=== PATIENT | female | born 1950 | race Caucasian/White ===

== ENCOUNTER 2017-07-26 19:10 | Emergency (ER) | payer OTHER ==
[~2017-07-26] VITALS: Ht 152.4 cm; Wt 92.4 kg
[~2017-07-26 19:10] MED LIST: AMLH550 PO; ASPCH81 PO; ATEN50TA8 PO; ATOR10TA88 PO; SYN50 PO
[2017-07-26 19:18] VITALS: TEMP 36.6; Ht 152.4 cm; Wt 92.4 kg
[2017-07-26] MEDS ORDERED: KRIL1000 PO (20:00)
[2017-07-26] MEDS ORDERED: GLUCTAB7 PO (20:00)
[2017-07-26] MEDS ORDERED: LEVO100T PO (20:00)
[2017-07-26] MEDS ORDERED: ASPCH81X PO (20:00)
[2017-07-26] MEDS ORDERED: CALCTAB7 PO (20:00)
[2017-07-26] MEDS ORDERED: COEN100C11 PO (20:00)
[2017-07-26] MEDS ORDERED: GLC/500 PO (20:00)
[2017-07-26] MEDS ORDERED: METO25TA3 PO (20:00)
[2017-07-26] MEDS ORDERED: HYDR50TA3 PO (20:00)
[2017-07-26] MEDS ORDERED: ATOR10TA88 PO (20:00)
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
--- NOTE | 2017-07-26 20:28 | EMERGENCY ROOM VISIT NOTE ---
ED Visit Note First contact with patient: 19:55 I did evaluate and examine this patient myself. I did guide management for the patient. I agree with the APC's assessment as discussed. Please see the APC's dictation for further details. I did independently review the x-rays. The patient does have a fracture to the base of the fifth metatarsal. She will follow up with orthopedics.
[2017-07-26 20:33] VITALS: BP 163/87; PULSE 80; O2SAT 94
== END 2017-07-26 20:33 | disposition home or self-care (01) ==
LOC: C.EDB 19:12 → C.EDD 20:33
DX: S92.354A Nondisplaced fracture of fifth metatarsal bone, right foot, initial encounter for closed fracture (principal); V48.4XXA Person boarding or alighting a car injured in noncollision transport accident, initial encounter; Y92.9 Unspecified place or not applicable; E78.5 Hyperlipidemia, unspecified; I10 Essential (primary) hypertension; E03.9 Hypothyroidism, unspecified; Z79.82 Long term (current) use of aspirin; Z79.899 Other long term (current) drug therapy

== ENCOUNTER → 2017-08-07 | Outpatient (CLI) | payer OTHER ==
[~2017-08-07] MED LIST changes: -AMLH550 PO; -ASPCH81 PO; +ASPCH81X PO; -ATEN50TA8 PO; +CALCTAB7 PO; +COEN100C11 PO; +GLC/500 PO; +GLUCTAB7 PO; +HYDR50TA3 PO; +KRIL1000 PO; +LEVO100T PO; +METO25TA3 PO; -SYN50 PO
--- NOTE | 2017-08-07 10:53 | DIAGNOSTIC IMAGING REPORT ---
R FOOT MIN 3 VIEWS CLINICAL HISTORY: Right foot fracture COMPARISON: 07/26/2017 DISCUSSION: Again evident is an avulsion fracture arising from the anterior lateral aspect of the calcaneus. There is also a transverse fracture through the base of the fifth metatarsal. The fracture remains unchanged in alignment. IMPRESSION: 1. No change in the alignment of the essentially nondisplaced transverse fracture through the base of the fifth metatarsal 2. Stable avulsion fragments arising from the anterior lateral aspect of the calcaneus Electronically signed by: Douglas Troncoso M.D. 08/07/2017 10:52 AM Dictated Date/Time: 08/07/2017 10:51 AM
== END | disposition home or self-care (01) ==
LOC: C.RDSM 13:38
PROVIDERS: ATTEND Internal Medicine
DX: S92.901A Unspecified fracture of right foot, initial encounter for closed fracture (principal); X58.XXXA Exposure to other specified factors, initial encounter

== ENCOUNTER 2017-08-13 08:21 | Emergency (ER) | payer OTHER ==
[~2017-08-13] VITALS: Ht 152.4 cm; Wt 96.3 kg
[2017-08-13 08:29] VITALS: TEMP 36.7; Ht 152.4 cm; Wt 96.3 kg
[2017-08-13] MEDS ORDERED: KETOROLAC TROMETHAMINE 60 MG/2 ML VIAL IM STA (09:16)
[2017-08-13] MEDS ORDERED: METOPROLOL TARTRATE 25 MG TAB PO ONE (09:30)
[2017-08-13 10:23] VITALS: BP 168/82; PULSE 76; O2SAT 97
[2017-08-13] MEDS ORDERED: CYCL10TA6 PO (10:28)
[2017-08-13] MEDS ORDERED: HYDR-5688 PO (10:28)
--- NOTE | 2017-08-13 19:01 | EMERGENCY ROOM VISIT NOTE ---
History First contact with patient: 08:46 Chief Complaint: NECK PAIN Stated Complaint: STIFF NECK-UNABLE TO MOVE History of Present Illness The patient is a 67 year old white female who presents with her sister to the Emergency Room with complaints of left-sided neck pain. She is being seen by physical therapy for back pain. She states earlier in the week she was doing some crunches type exercises with the therapist. She felt a significant pull in her left neck and had immediate onset of pain. Pain has persisted and has become worse. She points to her trapezius as the area of discomfort. It is extending to the base of her skull on the left. No symptoms on the right. She is having difficulty moving her neck secondary to pain. She has been using meloxicam without improvement. She does care for her daughter who is recovering from a stroke. She also works. She did work this morning. She states she did not take her usual medications, including metoprolol. She is noted to be hypertensive today. She denies any chest pain or symptoms radiating into the left arm. Pain is worse with motion of the shoulder or neck. No numbness or tingling in the left arm. She is wondering whether she needs CT imaging of her head. There has been no trauma. She did try moist heat but this seemed to make her symptoms worse. No other complaints. Review of Systems REVIEW OF SYSTEM: HEENT: No dizziness, visual problems, hearing loss, or tinnitus. There is no difficulty swallowing and no oral lesions are present. PULMONARY: No cough, shortness of breath, sputum production or hemoptysis. CARDIOVASCULAR: No chest pain, palpitations, shortness of breath or peripheral edema. GASTROINTESTINAL: No diarrhea, constipation, nausea, vomiting, or abdominal pain. GENITOURINARY: No dysuria, frequency, urgency or nocturia. NEUROLOGIC: No weakness, muscle tenderness, epilepsy or history of neurological problems. MUSCULOSKELETAL: No history of joint tenderness/swelling. No history of arthritis or arthralgias. SKIN: No rashes or lesions. PSYCHIATRIC: No history of depression or mental illness. ENDOCRINE: No history of abnormal hair growth. Past Medical/Surgical History Medical Problems: (1) Dyslipidemia (2) Hypertension Nos (3) Hypothyroidism Surgical Problems: (1) History of appendectomy (2) History of hysterectomy (3) History of tonsillectomy Bladder suspension Diabetes Family History Significant for diabetes, heart disease, hypertension, cancer, gallbladder disease, and kidney stones. Parents are living. Social History Smoking Status: Never Smoker Smokeless Tobacco Use: No Alcohol Use: occasionally Drug Use: none Marital Status: Housing Status: lives with family Occupation Status: employed Current/Historical Medications Scheduled Aspirin (Aspirin Chewable), 81 MG PO DAILY Atorvastatin (Lipitor), 10 MG PO DAILY Calcium Carbonate-Vitamin D W/ (Caltrate 600 Plus), 1 TAB PO DAILY Coenzyme Q10 (Ubidecarenone) (Coq-10), 100 MG PO DAILY Jbegutyovme-Flaswkrbgzx-Jek C- (Glucosamine Chondroitin), 1 TAB PO DAILY Hydrochlorothiazide (Hctz), 25 MG PO DAILY Krill Oil (Krill Oil), 1 CAP PO DAILY Levothyroxine Sodium (Synthroid), 100 MCG PO DAILY Metformin Hcl (Glucophage), 1,000 MG PO BID Metoprolol Succ (Toprol Xl) (Toprol-Xl), 25 MG PO DAILY Scheduled PRN Cyclobenzaprine Hcl (Flexeril), 10 MG PO TID PRN for Pain Hydrocodone/Acetaminophen 5MG/325MG ([place] 5MG/325MG), 1-2 TABLET PO Q6 PRN for Pain Physical Exam Vital Signs Date Time Temp Pulse Resp B/P (MAP) Pulse Ox O2 Delivery O2 Flow Rate FiO2 08/13/17 10:23 76 18 168/82 97 Room Air 08/13/17 08:29 36.7 76 18 200/74 97 Room Air Physical Exam Gen.: Well-developed, well-nourished, elderly white female, in obvious discomfort. No acute distress. Laying on a bed. Alert and oriented. Skin:Warm and dry with good turgor. No rashes or lesions. No ecchymosis or erythema. The patient is not diaphoretic. No abrasions. HEENT: Normocephalic atraumatic. Eyes PERRLA, EOMI. No conjunctiva or scleral injection. Nares patent bilaterally without turbinate enlargement. No significant drainage. No epistaxis. Oropharynx without erythema or exudate. Uvula midline, oral mucosa moist. No lesions present. Musculoskeletal: Patient has focal pain with palpation over her left trapezius. Trigger points are palpable. Pain extends to the occiput on the left side. No pain with palpation on the right trapezius. No pain with palpation through the middle trapezius or latissimus. No pain with palpation over the posterior rotator cuff musculature. No pain with palpation over the deltoid, bicep, or tricep in either arm. Full range of motion of the digits, wrists, elbows, and shoulders. She does get increased pain with shoulder elevation and retraction. Very limited head rotation and lateral flexion secondary to trapezius pain. No pain with palpation over the vertebral bodies or discs spaces of the cervical spine or thoracic spine. No pain with palpation over the pectoral muscle or sternocleidomastoid. Neurologic: Gross sensation is intact across the upper extremities by soft touch. No radiculopathy. Intact motor function across the radial, median, and ulnar nerve distributions. Peripheral pulses are 2+. Medical Decision & Procedures Medications Administered Medications (Trade) Dose Ordered Sig/Arabella Route Start Time Stop Time Status Last Admin Dose Admin Metoprolol Tartrate (Lopressor Tab) 25 mg NOW ONCE PO 08/13/17 09:30 08/13/17 09:31 DC 08/13/17 09:29 25 MG Ketorolac Tromethamine (Toradol Inj) 60 mg NOW STAT IM 08/13/17 09:16 08/13/17 09:18 DC 08/13/17 09:29 60 MG Toradol 60 mg IM, metoprolol 25 mg by mouth ED Course Patient was educated regarding today's findings as was her sister. Conservative care measures were discussed. BP was taken multiple times while in the department. She was initially hypertensive. After receiving metoprolol , BP improved. She should have it rechecked early this week. In regard to her neck, she was reassured that I do not suspect intracranial process. She does not require CT scan imaging. I do not think this is being generated from her cervical spine. She does not require imaging of the spine at this time. I did recommend that she follow-up with her therapist for massage therapy and E-stim. Gentle stretching daily. Warm moist compresses may improve her comfort. She was given an injection of Toradol 60 mg IM. She also received her morning metoprolol dose here in the ED. Pain improved. Avoid heavy lifting, pulling, or pushing above 2-3 pounds. Prescription was provided for Flexeril 10 mg to be used every 8 hours as needed for pain and spasm. She was also provided a prescription for [place] 5 mg to be used for breakthrough pain. Driving precautions and sedation precautions were reviewed at length. Return to the ED for any worsening of symptoms. Medical Decision Possibility of cervical radiculopathy, cervical disc disease, nerve root impingement, facet syndrome, cervical fracture, muscle strain, hypertensive crisis, rotator cuff injury, clavicle injury, and torticollis were considered. Medication Reconcilliation Current Medication List: was personally reviewed by me Blood Pressure Screening Patient's blood pressure: Elevated blood pressure Impression Primary Impression: Hypertension Additional Impression: Strain of left trapezius muscle Departure Information Prescriptions Cyclobenzaprine Hcl (FLEXERIL) 10 Mg Tab 10 MG PO TID Y for Pain, #15 TAB Prov: Josh Betts,P.A. 08/13/17 Hydrocodone/Acetaminophen 5MG/325MG ([place] 5MG/325MG) Tab 1-2 TABLET PO Q6 Y for Pain, #15 TAB For Initial Treatment Prov: Josh Betts,P.A. 08/13/17 Referrals Marly Salazar M.D. (PCP) Patient Instructions My [facility] Problem Qualifiers Primary Impression: Hypertension Hypertension type: unspecified Qualified Codes: I10 - Essential (primary) hypertension Additional Impression: Strain of left trapezius muscle Encounter type: initial encounter Qualified Codes: S46.812A - Strain of other muscles, fascia and tendons at shoulder and upper arm level, left arm, initial encounter
== END 2017-08-13 10:36 | disposition home or self-care (01) ==
LOC: C.EDB 08:23 → C.EDA 10:36
DX: I10 Essential (primary) hypertension (principal); S46.812A Strain of other muscles, fascia and tendons at shoulder and upper arm level, left arm, initial encounter; X50.9XXA Other and unspecified overexertion or strenuous movements or postures, initial encounter; E78.5 Hyperlipidemia, unspecified; E03.9 Hypothyroidism, unspecified; E11.9 Type 2 diabetes mellitus without complications; Z79.84 Long term (current) use of oral hypoglycemic drugs; Z79.82 Long term (current) use of aspirin; Z90.710 Acquired absence of both cervix and uterus; Z83.3 Family history of diabetes mellitus; Z82.3 Family history of stroke; Z82.49 Family history of ischemic heart disease and other diseases of the circulatory system; Z84.1 Family history of disorders of kidney and ureter

== ENCOUNTER → 2017-09-26 | Outpatient (CLI) | payer OTHER ==
[~2017-09-26] MED LIST changes: +ATOR10TA82 PO; -ATOR10TA88 PO; +HYDR-5688 PO
--- NOTE | 2017-09-26 11:45 | DIAGNOSTIC IMAGING REPORT ---
RIGHT FOOT 3 VIEWS HISTORY: Follow-up right foot fracture. COMPARISON: Right foot 08/29/2017. FINDINGS: There is again noted a fracture at the base of the fifth metatarsal. This remains distracted up to 4 mm. No significant healing identified. Possible nondisplaced fracture within the mid navicular bone. However, this could be due to overlying artifact. Mild soft tissue swelling within the midfoot has slightly improved. Tiny fracture at the anterolateral calcaneus remains unchanged. Tiny avulsion fractures at the dorsum of the anterior talus remain unchanged. Small plantar calcaneal spur. No radiopaque foreign bodies. IMPRESSION: 1. Overall, no significant change compared the prior study. 2. Mildly distracted fracture at the base of the fifth metatarsal remains unchanged. No significant healing at this time. 3. Stable small avulsion fracture at the anterolateral aspect of the calcaneus and tiny avulsion fractures at the dorsal aspect of the talus. 4. Question of a fracture through the mid navicular bone which may be due to overlying artifact. Electronically signed by: Sanjay Lindquist M.D. 09/26/2017 11:44 AM Dictated Date/Time: 09/26/2017 11:41 AM
== END | disposition home or self-care (01) ==
LOC: C.RDSM 13:33
PROVIDERS: ATTEND Internal Medicine
DX: S92.351A Displaced fracture of fifth metatarsal bone, right foot, initial encounter for closed fracture (principal); S92.031A Displaced avulsion fracture of tuberosity of right calcaneus, initial encounter for closed fracture; S92.151A Displaced avulsion fracture (chip fracture) of right talus, initial encounter for closed fracture; X58.XXXA Exposure to other specified factors, initial encounter

== ENCOUNTER → 2018-02-22 | Outpatient (CLI) | payer OTHER ==
[~2018-02-22] MED LIST changes: -HYDR-5688 PO
--- NOTE | 2018-02-22 14:26 | DIAGNOSTIC IMAGING REPORT ---
RIGHT FOOT 3 VIEWS CLINICAL HISTORY: Healing fracture. FINDINGS: 3 views of the right foot are compared to study dated 09/26/2017 and 08/07/2017. The skeletal structures are osteopenic. Again seen is a minimally distracted and nonunited fracture through the base of the fifth metatarsal. No acute fracture is seen. The joint spaces of the foot appear maintained. There are small dorsal and plantar calcaneal enthesophytes. Mild degenerative spurring is seen along the dorsal aspect of the tarsal bones. Mild soft tissue edema suggested in the foot. IMPRESSION: There is unchanged appearance of a nonunited fracture through the base of the fifth metatarsal as compared to previous. Electronically signed by: Bari Putnam M.D. 02/22/2018 2:25 PM Dictated Date/Time: 02/22/2018 2:24 PM
== END | disposition home or self-care (01) ==
LOC: C.RDSM 15:17
PROVIDERS: ATTEND Internal Medicine
DX: S92.351K Displaced fracture of fifth metatarsal bone, right foot, subsequent encounter for fracture with nonunion (principal); X58.XXXD Exposure to other specified factors, subsequent encounter